=== PATIENT | male | born 1980 ===

== ENCOUNTER 2018-03-15 19:52 | Emergency (ER) | payer SELFPAY ==
[2018-03-15 20:13] VITALS: BP 142/75; PULSE 60; RESP 19; TEMP 98; O2SAT 99
--- NOTE | 2018-03-15 20:34 | ED PDOC ---
HPI: Skin/Bite Injury Time Seen by Provider: 03/15/18 20:21 Chief Complaint (Nursing): Abnormal Skin Integrity Chief Complaint (Provider): Laceration History Per: Patient History/Exam Limitations: no limitations Onset/Duration Of Symptoms: Hrs (x4) Current Symptoms Are (Timing): Still Present Location Of Injury: Right: Foot Quality Of Symptoms: Painful Additional Complaint(s): 38 year old male presents to ED with complaints of a facial laceration sustained 4 hours prior to arrival. Patient states he was running to catch the bus when he fell, hitting a metal post. Denies LOC or vision changes. Confirms that his tetanus booster is UTD. PCP: Yen dominguez Past Medical History Reviewed: Historical Data, Nursing Documentation, Vital Signs Vital Signs: Last Vital Signs Temp 98.0 F 03/15/18 20:12 Pulse 60 03/15/18 20:12 Resp 19 03/15/18 20:12 BP 142/75 03/15/18 20:12 Pulse Ox 99 03/15/18 20:54 - Medical History PMH: No Chronic Diseases - Surgical History Surgical History: No Surg Hx - Family History Family History: States: No Known Family Hx - Living Arrangements Living Arrangements: With Family - Social History Current smoker - smoking cessation education provided: No Ex-Smoker (has not smoked in the last 12 months): No Alcohol: None Drugs: Denies - Immunization History Hx Tetanus Toxoid Vaccination: Yes - Allergies Allergies/Adverse Reactions: Allergies Allergy/AdvReac Type Severity Reaction Status Date / Time No Known Allergies Allergy Verified 03/15/18 20:15 Review of Systems ROS Statement: Except As Marked, All Systems Reviewed And Found Negative Eyes: Negative for: Vision Change Gastrointestinal: Negative for: Nausea, Vomiting Skin: Positive for: Other (laceration to face) Neurological: Positive for: Other (denies LOC). Negative for: Dizziness Physical Exam - Reviewed Nursing Documentation Reviewed: Yes Vital Signs Reviewed: Yes - Physical Exam Appears: Positive for: Non-toxic, No Acute Distress Head Exam: Positive for: NORMOCEPHALIC. Negative for: ATRAUMATIC (2 cm superficial laceration through right eyebrow, no active bleeding, N/V intact) Skin: Positive for: Normal Color, Warm, Dry Eye Exam: Positive for: Normal appearance, EOMI, PERRL Extremity: Positive for: Normal ROM Neurologic/Psych: Positive for: Alert, anti tank missileman II-XII (grossly intact), Oriented. Negative for: Motor/Sensory Deficits - ECG O2 Sat by Pulse Oximetry: 99 (RA) Pulse Ox Interpretation: Normal Medical Decision Making Medical Decision Makin Initial impression: 38 year old male with a right eyebrow laceration See procedure note for wound repair. Patient was given wound care instructions. Advised tylenol or advil for pain as needed. Wound check 2-3 days. Scribe Attestation: Documented by Lesvia Esposito, acting as a scribe for Taylor Moreno PA-C Provider Scribe Attestation: All medical record entries made by the Scribe were at my direction and personally dictated by me. I have reviewed the chart and agree that the record accurately reflects my personal performance of the history, physical exam, medical decision making, and the department course for this patient. I have also personally directed, reviewed, and agree with the discharge instructions and disposition. Disposition - Clinical Impression Clinical Impression: Eyebrow laceration Counseled Patient/Family Regarding: Need For Followup - Disposition Referrals: [facility] [Outside] Disposition: Routine/Home Disposition Time: 21:14 Condition: STABLE Additional Instructions: ALLOW STERI-STRIPS AND GLUE TO FLAKE OFF ON THEIR OWN. DO NOT PEEL OFF. KEEP AREA COMPLETELY DRY, DO NOT GET WET. AVOID HEAVY LIFTING OR STRENOUS ACTIVITY FOR 1 WEEK. TAKE TYLENOL OR ADVIL FOR PAIN NEEDED. FOLLOW UP WITH PRIMARY CARE DOCTOR OR CLINIC. Instructions: Laceration Repair With Glue (DC) Forms: [employer] (Icelandic) Procedures - Laceration/Wound Repair Facial Laceration Wound Length (cm): 2 Wound's Depth, Shape: superficial Wound Explored: clean Irrigated w/ Saline (ccs): 10 Betadine Prep?: Yes Wound Repaired With: Skin adhesive (dermabond) Layer Closure?: No Wound Complexity: Simple (good wound approximation achieved with dermabond, closure reinforced with steri-strips) Sterile Dressing Applied?: Yes Progress: Tolerated well by patient, no complications
== END 2018-03-15 21:19 | disposition home or self-care (01) ==
LOC: H.ER 19:52
DX: S01.81XA Laceration without foreign body of other part of head, initial encounter (principal); W22.8XXA Striking against or struck by other objects, initial encounter; Y92.410 Unspecified street and highway as the place of occurrence of the external cause